=== PATIENT | male | born 2000 | race Two or more races ===

== ENCOUNTER 2025-07-06 18:31 | Emergency (ER) | payer MEDICAID, SELFPAY ==
[2025-07-06 18:32] VITALS: BMI 27.3
[2025-07-06 19:03] VITALS: BP 120/83; PULSE 88; RESP 18; TEMP 36.9; O2SAT 98
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
== END 2025-07-06 22:12 | disposition home or self-care (01) ==
PROVIDERS: Emergency Provider Emergency Medicine; PCP Nurse Practitioner Family
DX: S50.812A Abrasion of left forearm, initial encounter (principal); S20.219A Contusion of unspecified front wall of thorax, initial encounter; S40.012A Contusion of left shoulder, initial encounter
CPT/HCPCS: 71045; 73030; 99283